=== PATIENT | female | born 1985 | race Caucasian/White ===

== ENCOUNTER 2022-05-27 14:45 | Emergency (ER) | payer MEDICARE, OTHER ==
[~2022-05-27] VITALS: Ht 157.5 cm; Wt 43.1 kg
[2022-05-27] MEDS ORDERED: IV NORMAL SALINE 1000 ML BAG IV ONE (15:00)
[2022-05-27 15:09] LABS: HEMATOCRIT 39.7 % (31.2-41.9); MEAN CORPUSCULAR VOLUME 92.1 fL (75.5-95.3); PLATELET COUNT (AUTO) 121 K/uL (179-408)
--- NOTE | 2022-05-27 15:20 | NUR ---
PATIENT BIBEMS FROM HOME S/P WITNESSED T/C SEIZURE. PATIENT IS A/O X 4, DENIES PAIN/DISCOMFORT. PATIENT PLACED ON THE BEDSIDE MONITOR NSR OBSERVED. PATIENT ARRIVED WITH #20G ANGIO-CATH TO (RT) A/C, BLOOD COLLECTED AND SENT AND IVF STARTED PER MD ORDERS. PATIENT IS STABLE ON THE STRETCHER, IN THE LOWEST POSITION CALL KERNS WITHIN REACH, WITH SEIZURE PRECAUTION IN PLACE. PATIENT IS AWAITING DISPOSITION.
[2022-05-27 15:23] LABS: ALANINE AMINOTRANSFERASE 27 U/L (14-59); ALKALINE PHOSPHATASE 52 U/L (50-136); ASPARTATE AMINOTRANSFERASE 32 U/L (15-37); BILIRUBIN,TOTAL 0.3 mg/dL (0.2-1.0); CARBON DIOXIDE 24 mmol/L (21-32); CHLORIDE 101 mmol/L (98-107); CREATININE 0.6 mg/dL (0.6-1.3); GLUCOSE 160 mg/dL (74-106); POTASSIUM 4.6 mmol/L (3.5-5.1); TOTAL PROTEIN, SERUM 7.6 g/dL (6.4-8.2); UREA NITROGEN, BLOOD 17 mg/dL (7-18)
[2022-05-27 15:34] LABS: BILIRUBIN,DIRECT < 0.1 mg/dL (0.0-0.2)
--- NOTE | 2022-05-27 17:05 | NUR ---
IV removed. Catheter intact and site benign. Pressure and 4x4 gauze applied to site. No bleeding noted.
--- NOTE | 2022-05-27 17:08 | NUR ---
Patient discharged to home in stable condition with friend. Written and verbal after care instructions given. Patient verbalizes understanding of instructions. Stressed follow up or return to ER for worsening s/s. Pt brought to ER waiting room in w/c, friend with pt.
== END 2022-05-27 17:09 | disposition home or self-care (01) ==
LOC: ER 14:45
DX: G40.409 Other generalized epilepsy and epileptic syndromes, not intractable, without status epilepticus (principal); G09 Sequelae of inflammatory diseases of central nervous system
CPT/HCPCS: 99284; 96360; 80076; 80048; 85025; 84702; 36415; J7040; 93005; A4663